=== PATIENT | female | born 1990 | race African-American/Black ===

== ENCOUNTER 2017-02-11 01:28 | Emergency (ER) | payer MEDICAID, OTHER ==
[~2017-02-11] VITALS: Ht 167.6 cm; Wt 63.5 kg
[2017-02-11] MEDS ORDERED: ONDANSETRON ODT 4 MG TAB PO ONE (01:45)
[2017-02-11 02:22] LABS: Basophils # (auto) 0 uL; Basophils % (auto) 0.3 % (0.0-2.0); CONDITION Y; DEFINITIVE SEE PRINTOUT; Eosinophils # (auto) 0 uL; Eosinophils % (auto) 0.2 % (0.0-7.0); Hematocrit 35.5 % (36.0-46.0); Hemoglobin 11.7 g/dL (12.2-16.2); Lymphocytes # (auto) 1.3 uL; Mean Corpuscular Hemoglobin 25.1 pg (28.0-32.0); Mean Corpuscular Hgb Conc. 32.9 g/dL (32.0-36.0); Mean Corpuscular Volume 76.4 fL (80.0-100.0); Mean Platelet Volume 11.4 fL (7.4-10.4); Monocytes # (auto) 0.4 uL; Monocytes % (auto) 6.3 % (0.0-12.0); Neutrophils # (auto) 4.6 uL; Neutrophils % (auto) 72.2 % (37.0-80.0); Platelet Count (auto) 179 10^3/uL (140-450); Red Cell Distribution Width 15.4 % (11.6-16.0); White Blood Cell 6.4 10^3/uL (4.4-10.8)
[2017-02-11 02:32] LABS: Albumin 3.7 g/dL (3.4-5.0); Calcium 9.5 mg/dL (8.5-10.1); Potassium 3.4 mmol/L (3.5-5.1)
[2017-02-11 02:35] LABS: Bilirubin, Total 1.1 mg/dL (0.2-1.0); Total Protein 8.2 g/dL (6.4-8.2)
[2017-02-11 02:37] LABS: INR 0.99 (0.9-1.15); Partial Thromboplastin Time 28.9 sec (22.64-33.71); Prothrombin Time 10.8 sec (9.37-12.3)
[2017-02-11 04:13] LABS: Urine Bilirubin Negative (Negative); Urine Blood Negative /uL (Negative); Urine Ca Oxalate Crystal FEW (None Seen); Urine Color Yellow (Yellow); Urine Glucose Normal (Normal); Urine Mucus FEW (None Seen); Urine Nitrite Negative (Negative); Urine RBC 2 /hpf (0 - 4); Urine Squamous Epithelial Cell FEW /hpf (<5); Urine Urobilinogen Normal (Negative); Urine pH 5.5 (5.0-8.0)
[2017-02-11 04:14] LABS: Urine Ketone 4+ (Negative)
[2017-02-11] MEDS ORDERED: ONDANSETRON HCL 4 MG/2 ML VIAL IV ONE (04:15)
[2017-02-11] MEDS ORDERED: SODIUM CHLORIDE 0.9% 1,000 ML IV ONE (04:15)
[2017-02-11 04:40] VITALS: BP 110/72
== END 2017-02-11 06:27 | disposition home or self-care (01) ==
LOC: ER 01:36
DX: O21.9 Vomiting of pregnancy, unspecified (principal); O26.892 Other specified pregnancy related conditions, second trimester; Z3A.15 15 weeks gestation of pregnancy; K12.1 Other forms of stomatitis; J02.9 Acute pharyngitis, unspecified
CPT/HCPCS: 36415; 76805; 80053; 81001; 81025; 84702; 85025; 85610; 85730; 96361; 96374; 99285; J2405; J7030

== ENCOUNTER 2017-07-28 18:20 | Observation (INO) | payer MEDICAID | END 2017-07-28 19:35 | disposition home or self-care (01) | DRG 566 | LOC: LDRP 18:20 | PROVIDERS: ADMIT Obstetrics & Gynecology; ATTEND Obstetrics & Gynecology | DX: O62.9 Abnormality of forces of labor, unspecified (principal); O26.893 Other specified pregnancy related conditions, third trimester; R53.1 Weakness; Z3A.38 38 weeks gestation of pregnancy | CPT/HCPCS: 59025; 81002; G0378 ==

== ENCOUNTER 2017-08-10 06:50 | Inpatient (IN) | payer MEDICAID ==
[~2017-08-10] VITALS: Ht 167.6 cm; Wt 77.1 kg
[2017-08-10] MEDS ORDERED: LACTATED RINGER'S 1,000 ML IV SCH (07:16)
[2017-08-10] MEDS ORDERED: LACT. RINGERS/OXYTOCIN 20UNITS 1,000 ML IV SCH (07:16)
[2017-08-10] MEDS ORDERED: PREN-96 PO (07:28)
[2017-08-10] MEDS ORDERED: DOXY10TA OR (07:28)
[2017-08-10] MEDS ORDERED: METHYLERGONOVINE MALEATE 0.2 MG/ML AMP IM PRN (07:30)
[2017-08-10] MEDS ORDERED: PENICILLIN G POT 5MIL/D5 50ML 50 ML IV ONE (07:30)
[2017-08-10] MEDS ORDERED: LIDOCAINE 2%HCL (LOCAL ANESTH.) INJ 20ML MDV IJ ONE (07:30)
[2017-08-10] MEDS ORDERED: PHISODERM TOP SOLN 240ML BTL TOP PRN (07:30)
[2017-08-10] MEDS ORDERED: NALBUPHINE HCL 10 MG/1ml INJECTION IV PRN (07:30)
[2017-08-10] MEDS ORDERED: WITCH HAZEL-GLYCERIN PAD TOP PRN (07:30)
[2017-08-10] MEDS ORDERED: DERMOPLAST 60ML BOTTLE TOP PRN (07:30)
[2017-08-10] MEDS ORDERED: ONDANSETRON HCL 4 MG/2 ML VIAL IV PRN (08:15)
[2017-08-10 09:06] LABS: Basophils # (auto) 0 uL; Basophils % (auto) 0.8 % (0.0-2.0); Eosinophils # (auto) 0 uL; Eosinophils % (auto) 0.3 % (0.0-7.0); Hematocrit 36.9 % (36.0-46.0); Hemoglobin 11.9 g/dL (12.2-16.2); Lymphocytes # (auto) 1.7 uL; Lymphocytes % (auto) 34.2 % (10.0-50.0); Mean Corpuscular Hgb Conc. 32.3 g/dL (32.0-36.0); Mean Corpuscular Volume 83.5 fL (80.0-100.0); Monocytes # (auto) 0.6 uL; Neutrophils # (auto) 2.7 uL; Neutrophils % (auto) 53.7 % (37.0-80.0); Nucleated Red Blood Cells % 0.2 %; Platelet Count (auto) 160 10^3/uL (140-450); Red Blood Cells 4.42 10^6/uL (4.0-5.20); Red Cell Distribution Width 14.6 % (11.8-14.3); White Blood Cell 5.1 10^3/uL (4.4-10.8)
[2017-08-10 09:19] LABS: Albumin 3.1 g/dL (3.4-5.0); BUN/Creatinine Ratio 9.1; Bilirubin, Total 0.7 mg/dL (0.2-1.0); Calcium 8.9 mg/dL (8.5-10.1); INR 0.92 (0.9-1.15); Potassium 3.8 mmol/L (3.5-5.1); Total Protein 7.2 g/dL (6.4-8.2); Uric Acid 5.7 mg/dL (2.6-6.0)
[2017-08-10 09:20] LABS: Urine Bacteria NONE SEEN /hpf (None Seen); Urine Blood Negative /uL (Negative); Urine Mucus FEW (None Seen); Urine Specific Gravity 1.019 (1.001-1.035); Urine WBC 2 /hpf (0 - 5)
[2017-08-10] MEDS: D5W/LACTATED RINGERS 1,000 ML IV SCH (09:20)
[2017-08-10] MEDS: PENICILLIN G POTASSIUM 2,500,000 UNITS in D5W 5% 50 ML IV SCH ×3 (12:30→22:45)
[2017-08-10] MEDS ORDERED: fentaNYL CITRATE 100 MCG/2 ML VL ONE (19:20)
[2017-08-10] MEDS ORDERED: ePHEDrine SULFATE 50 MG/ML AMP ONE ×2 (19:21→21:01)
[2017-08-10] MEDS ORDERED: fentaNYL W ROPIVACAINE 150 ML EPI ONE (19:21)
[2017-08-10] MEDS ORDERED: LIDOCAINE HCL 2 %PF INJ 10ML AMP IJ ONE ×2 (19:21→19:30)
[2017-08-10] MEDS ORDERED: NALOXONE HCL 0.4 MG/ML VIAL ONE (19:21)
[2017-08-10] MEDS ORDERED: ePHEDrine SULFATE 50 MG/ML AMP IV ONE (19:30)
[2017-08-10] MEDS ORDERED: fentaNYL W ROPIVACAINE 150 ML EPI SCH (19:30)
[2017-08-10] MEDS ORDERED: NALOXONE HCL 0.4 MG/ML VIAL IV ONE (19:30)
[2017-08-10] MEDS ORDERED: fentaNYL CITRATE 100 MCG/2 ML VL IV ONE (19:30)
[2017-08-11] VITALS (13 sets, daily range): BP systolic 104–143; BP diastolic 72–99
[2017-08-11] MEDS ORDERED: PROMETHAZINE HCL 25 MG/ML 1ML IM ONE (02:15)
[2017-08-11] MEDS: PENICILLIN G POTASSIUM 2,500,000 UNITS in D5W 5% 50 ML IV SCH ×2 (03:10→07:30)
[2017-08-11] MEDS ORDERED: PROMETHAZINE HCL 25 MG/ML 1ML IV PRN (03:45)
[2017-08-11] MEDS ORDERED: ROCURONIUM 10MG/ML 10ML VIAL IV ONE (08:19)
[2017-08-11] MEDS ORDERED: KETOROLAC TROMETH 30 MG/ML 1ML VIAL IV PRN (09:00)
[2017-08-11] MEDS: SODIUM CITR/CITRIC ACID ORAL SOLN 30 ML PO SCH ×2 (09:00→13:00)
[2017-08-11] MEDS ORDERED: LACT. RINGERS/OXYTOCIN 20UNITS 1,000 ML IV SCH (09:00)
[2017-08-11] MEDS ORDERED: MORPHINE SULF INJ 2 MG/ML SYRINGE 1ML IV PRN (09:00)
[2017-08-11] MEDS: ceFAZolin 1GM/50ML 50 ML IV SCH ×2 (09:00→17:10)
[2017-08-11] MEDS ORDERED: OXYTOCIN 10UNIT/ML 1ML VIAL ONE (09:01)
[2017-08-11] MEDS ORDERED: ePHEDrine SULFATE 50 MG/ML AMP IV PRN (09:15)
[2017-08-11] MEDS ORDERED: hydrALAZINE HCL 20 MG/ML VL IV PRN (09:15)
[2017-08-11] MEDS ORDERED: HYDROmorphone HCL 2 MG/ML VL IV PRN (09:15)
[2017-08-11] MEDS ORDERED: ONDANSETRON HCL 4 MG/2 ML VIAL IV ONE (09:15)
[2017-08-11] MEDS ORDERED: GLYCOPYRROLATE 0.2 MG/ML 1ML VIAL ONE (09:20)
[2017-08-11] MEDS ORDERED: NEOSTIGMINE 1 MG/ML INJ (10mg/10ML VIAL) ONE (09:20)
[2017-08-11] MEDS ORDERED: ceFAZolin 1GM VL ONE (09:20)
[2017-08-11] MEDS ORDERED: OXYTOCIN 10 UNIT/ML 10ML VIAL ONE (09:21)
[2017-08-11] MEDS ORDERED: SUCCINYLCHOLINE CHLORIDE 20 MG/ML 10ML VIAL IV ONE (09:24)
[2017-08-11] MEDS: HYDROmorphone HCL 2 MG/ML VL IV PRN (13:37)
[2017-08-11] MEDS: KETOROLAC TROMETH 30 MG/ML 1ML VIAL IV SCH ×2 (16:17→22:13)
[2017-08-11] MEDS: LACT. RINGERS/OXYTOCIN 20UNITS 1,000 ML IV SCH ×2 (16:17→21:00)
[2017-08-11] MEDS ORDERED: KETOROLAC TROMETH 30 MG/ML 1ML VIAL IV SCH (18:00)
[2017-08-11] MEDS: LACTATED RINGER'S 1,000 ML IV SCH (18:15)
[2017-08-12] VITALS: BP 122/74
[2017-08-12] MEDS: ceFAZolin 1GM/50ML 50 ML IV SCH (01:11)
[2017-08-12] MEDS: HYDROmorphone HCL 2 MG/ML VL IV PRN (01:49)
[2017-08-12] MEDS: LACTATED RINGER'S 1,000 ML IV SCH (01:53)
[2017-08-12 03:28] VITALS: BP 116/69
[2017-08-12] MEDS: KETOROLAC TROMETH 30 MG/ML 1ML VIAL IV SCH (04:27)
[2017-08-12] MEDS: LACT. RINGERS/OXYTOCIN 20UNITS 1,000 ML IV SCH (05:00)
[2017-08-12] MEDS ORDERED: BISACODYL 10 MG RECT SUPP PR PRN (06:45)
[2017-08-12 07:27] LABS: Basophils # (auto) 0 uL; Basophils % (auto) 0.3 % (0.0-2.0); Eosinophils # (auto) 0 uL; Eosinophils % (auto) 0.1 % (0.0-7.0); Hematocrit 28.3 % (36.0-46.0); Hemoglobin 9.4 g/dL (12.2-16.2); Lymphocytes # (auto) 1.8 uL; Lymphocytes % (auto) 18.5 % (10.0-50.0); Mean Corpuscular Hemoglobin 28.2 pg (28.0-32.0); Mean Corpuscular Hgb Conc. 33.1 g/dL (32.0-36.0); Mean Corpuscular Volume 85.4 fL (80.0-100.0); Monocytes # (auto) 0.7 uL; Monocytes % (auto) 7.2 % (0.0-12.0); Neutrophils # (auto) 7.3 uL; Neutrophils % (auto) 73.9 % (37.0-80.0); Platelet Count (auto) 114 10^3/uL (140-450); Red Blood Cells 3.32 10^6/uL (4.0-5.20); Red Cell Distribution Width 14.8 % (11.8-14.3); White Blood Cell 9.9 10^3/uL (4.4-10.8)
[2017-08-12 08:00] VITALS: BP 111/68
[2017-08-12] MEDS ORDERED: ceFAZolin 1GM/50ML 50 ML IV ONE (08:56)
[2017-08-12] MEDS ORDERED: ceFAZolin 1GM/50ML 50 ML IV SCH (09:00)
[2017-08-12] MEDS: SIMETHICONE 80 MG CHEWABLE TABLET PO SCH ×4 (09:10→22:05)
[2017-08-12] MEDS: DOCUSATE SOD 100 MG CAP PO SCH ×2 (09:39→22:06)
[2017-08-12] MEDS: DOCUSATE CALCIUM 240 MG CAP PO SCH (09:39)
[2017-08-12] MEDS: HYDROcodone-ACET 5/325MG TAB PO PRN ×3 (09:40→22:05)
[2017-08-12] MEDS: IBUPROFEN 800 MG TAB PO PRN ×2 (11:50→20:40)
[2017-08-12 12:00] VITALS: BP 118/77
[2017-08-12] MEDS: guaiFENesin 200 MG/10 ML UD PO PRN ×2 (12:25→22:13)
[2017-08-12 18:30] VITALS: BP 104/74
[2017-08-12 22:30] VITALS: BP 103/72
[2017-08-13 03:30] VITALS: BP 114/68
[2017-08-13] MEDS: guaiFENesin 200 MG/10 ML UD PO PRN (03:33)
[2017-08-13] MEDS: HYDROcodone-ACET 5/325MG TAB PO PRN ×4 (03:34→21:42)
[2017-08-13] MEDS: SIMETHICONE 80 MG CHEWABLE TABLET PO SCH ×4 (05:54→21:41)
[2017-08-13] MEDS: IBUPROFEN 800 MG TAB PO PRN ×3 (05:54→23:35)
[2017-08-13 07:34] VITALS: BP 121/73
[2017-08-13] MEDS: DOCUSATE CALCIUM 240 MG CAP PO SCH (10:35)
[2017-08-13] MEDS: DOCUSATE SOD 100 MG CAP PO SCH ×2 (10:35→21:41)
[2017-08-13 12:09] VITALS: BP 121/72
[2017-08-13 15:36] VITALS: BP 119/74
[2017-08-13 19:00] VITALS: BP 115/69
[2017-08-13 23:30] VITALS: BP 126/85
[2017-08-14 02:30] VITALS: BP 117/82
[2017-08-14] MEDS: HYDROcodone-ACET 5/325MG TAB PO PRN (02:45)
[2017-08-14] MEDS: SIMETHICONE 80 MG CHEWABLE TABLET PO SCH (05:35)
[2017-08-14 08:10] VITALS: BP 119/81
[2017-08-14] MEDS: DOCUSATE CALCIUM 240 MG CAP PO SCH (10:18)
[2017-08-14] MEDS: DOCUSATE SOD 100 MG CAP PO SCH (10:18)
[2017-08-14] MEDS: IBUPROFEN 800 MG TAB PO PRN (10:18)
[2017-08-14 12:08] VITALS: BP 119/78
== END 2017-08-14 13:00 | disposition home or self-care (01) | DRG 540 ==
LOC: LDRP 06:50
PROVIDERS: ADMIT Specialist; ATTEND Specialist
PROC: 10D00Z1 Extraction of Products of Conception, Low, Open Approach (ICD-10-PCS; principal; 2017-08-11 08:00)
DX: O69.81X0 Labor and delivery complicated by cord around neck, without compression, not applicable or unspecified (principal); O99.824 Streptococcus B carrier state complicating childbirth; O76 Abnormality in fetal heart rate and rhythm complicating labor and delivery; O77.0 Labor and delivery complicated by meconium in amniotic fluid; Z37.0 Single live birth; O62.1 Secondary uterine inertia; Z3A.40 40 weeks gestation of pregnancy
CPT/HCPCS: 36415; 51702; 59025; 62282; 80053; 81001; 84550; 85025; 85610; 85730; 86850; 86900; 86901; 94762; 96361; 96365; 96366; 96375; J0330; J0690; J1885; J2405; J2540; J2590; J3010; J7060